=== PATIENT | male | born 1960 | race Two or more races ===

== ENCOUNTER 2017-12-20 09:14 | Emergency (ER) | payer SELFPAY ==
[~2017-12-20] VITALS: Ht 170.2 cm; Wt 70.3 kg
[2017-12-20] MEDS ORDERED: IBUPROFEN600 MG ORAL (09:15)
[2017-12-20 09:21] VITALS: BP 114/76
--- NOTE | 2017-12-20 09:28 | Emergency Room Report ---
History of Present Illness General Chief Complaint: Abdominal Pain Source: Patient Present Illness HPI The patient has a couple different complaints. The patient states that he has had a headache and vertigo for the past few days. He states that the vertigo is the worst part. He states that the symptoms are worse whenever he is walking or standing up. He denies trauma or recent illness. He denies neck pain. He denies fever or chills. He denies nausea or vomiting. He states that he's also had abdominal pain. He did see his primary care physician and was told he has an inguinal hernia on the left. He states that the pain and abdomen continues. He denies dysuria or hematuria. He states he has had a lot of diarrhea. He has no other complaints. Allergies: Coded Allergies: No Known Allergies (Unverified , 12/20/17) Patient History Past Medical History: none, see triage record Social History: Denies: smoking, alcohol use, drug use Reviewed Nursing Documentation: PMH: Agreed; PSxH: Agreed Nursing Documentation-PMH Past Medical History: No Stated History Review of Systems All Other Systems: negative except mentioned in HPI Physical Exam Vital Signs Date Time Temp Pulse Resp B/P (MAP) Pulse Ox O2 Delivery O2 Flow Rate FiO2 12/20/17 09:10 98.6 88 18 124/88 100 Room Air 98.6 Sp02 EP Interpretation: reviewed, normal General Appearance: no apparent distress, alert, GCS 15, non-toxic Head: normocephalic, atraumatic Eyes: bilateral eye normal inspection, bilateral eye PERRL ENT: hearing grossly normal, normal pharynx, no angioedema, normal voice Neck: full range of motion, supple/symm/no masses Respiratory: chest non-tender, lungs clear, normal breath sounds, speaking full sentences Cardiovascular #1: regular rate, rhythm, no edema Gastrointestinal: normal bowel sounds, soft, non-distended, no guarding, no rebound, tenderness - TTP in the LLQ Rectal: deferred Musculoskeletal: back normal, gait/station normal, normal range of motion, non- tender Neurologic: alert, oriented x3, responsive, motor strength/tone normal, sensory intact, speech normal Psychiatric: judgement/insight normal, memory normal, mood/affect normal, no suicidal/homicidal ideation Skin: normal color, no rash, warm/dry, well hydrated Medical Decision Making Diagnostic Impression: Primary Impression: Vertigo Additional Impression: Colitis ER Course This patient had 2 separate complaints. He had complaints of vertigo-like symptoms. This patient has a physical exam at presentation consistent with benign positional vertigo. Other considerations include labyrinthitis, Mnire's disease, central vertigo. The patient's symptoms are short and episodic and have been positional. There are no central neurologic findings on physical exam which is very reassuring that this is not a posterior circulation stroke. CT of the head is negative. I will treat the patient with meclizine and have the patient follow up closely with the primary care physician. The patient also has findings on CT of the abdomen and pelvis consistent with colitis. The patient is tender in the left lower quadrant of the abdomen and has had diarrhea. A history and physical exam in addition to the radiology findings are consistent with a colitis. I will go ahead and treat this patient with a course of Cipro and Flagyl given that the patient has been living on [address]. He is higher risk for a bacterial colitis. That said, this could be viral in etiology. Overall, the patient is well-appearing and nontoxic. The patient was given return precautions and followup instructions. Laboratory Tests Test 12/20/17 09:20 12/20/17 10:20 White Blood Count 7.3 K/UL (4.8-10.8) Red Blood Count 5.23 M/UL (4.70-6.10) Hemoglobin 14.3 G/DL (14.2-18.0) Hematocrit 43.9 % (42.0-52.0) Mean Corpuscular Volume 84 FL (80-99) Mean Corpuscular Hemoglobin 27.3 PG (27.0-31.0) Mean Corpuscular Hemoglobin Concent 32.5 G/DL (32.0-36.0) Red Cell Distribution Width 12.1 % (11.6-14.8) Platelet Count 248 K/UL (150-450) Mean Platelet Volume 5.9 FL (6.5-10.1) L Neutrophils (%) (Auto) 57.1 % (45.0-75.0) Lymphocytes (%) (Auto) 24.8 % (20.0-45.0) Monocytes (%) (Auto) 14.9 % (1.0-10.0) H Eosinophils (%) (Auto) 1.7 % (0.0-3.0) Basophils (%) (Auto) 1.5 % (0.0-2.0) Sodium Level 136 MMOL/L (136-145) Potassium Level 3.6 MMOL/L (3.5-5.1) Chloride Level 103 MMOL/L (98-107) Carbon Dioxide Level 27 MMOL/L (21-32) Anion Gap 6 mmol/L (5-15) Blood Urea Nitrogen 8 mg/dL (7-18) Creatinine 1.0 MG/DL (0.55-1.30) Estimate Glomerular Filtration Rate > 60 mL/min (>60) Glucose Level 111 MG/DL (74-106) H Calcium Level 8.1 MG/DL (8.5-10.1) L Total Bilirubin 0.6 MG/DL (0.2-1.0) Aspartate Amino Transferase (AST) 22 U/L (15-37) Alanine Aminotransferase (ALT) 22 U/L (12-78) Alkaline Phosphatase 96 U/L (46-116) Total Protein 7.1 G/DL (6.4-8.2) Albumin 3.0 G/DL (3.4-5.0) L Globulin 4.1 g/dL Albumin/Globulin Ratio 0.7 (1.0-2.7) L Lipase 72 U/L (73-393) L Urine Color Yellow Urine Appearance Slightly cloudy Urine pH 6 (4.5-8.0) Urine Specific [place] 1.020 (1.005-1.035) Urine Protein 1+ (NEGATIVE) H Urine Glucose (UA) Negative (NEGATIVE) Urine Ketones Negative (NEGATIVE) Urine Occult Blood 4+ (NEGATIVE) H Urine Nitrite Negative (NEGATIVE) Urine Bilirubin Negative (NEGATIVE) Urine Urobilinogen 1 MG/DL (0.0-1.0) H Urine Leukocyte Esterase 1+ (NEGATIVE) H Urine RBC 5-10 /HPF (0 - 0) H Urine WBC 2-4 /HPF (0 - 0) Urine Squamous Epithelial Cells Few /LPF (NONE/OCC) Urine Bacteria Few /HPF (NONE) Urine Mucus Moderate /LPF (NONE/OCC) H CT/MRI/US Diagnostic Results CT/MRI/US Diagnostic Results : Imaging Test Ordered: CT abd/pelvis, CT head Impression CT abd/pelvis: Findings consistent with sigmoid colitis. See official report. CT head: No acute findings. See official report. Last Vital Signs Date Time Temp Pulse Resp B/P (MAP) Pulse Ox O2 Delivery O2 Flow Rate FiO2 12/20/17 09:21 98.6 94 18 114/76 98 Room Air 98.6 Disposition: HOME, SELF-CARE Condition: Improved KAZ LOCKE D.O. Dec 20, 2017 09:28
[2017-12-20] MEDS ORDERED: Meclizine 25mg tab ORAL ONE (09:30)
[2017-12-20] MEDS ORDERED: Isovue-300 100ml vial INJ PRN (09:30)
[2017-12-20 09:41] LABS: BASOPHILS % (AUTO) 1.5 % (0.0-2.0); EOSINOPHILS % (AUTO) 1.7 % (0.0-3.0); HEMATOCRIT 43.9 % (42.0-52.0); HEMOGLOBIN 14.3 G/DL (14.2-18.0); LYMPHOCYTES % (AUTO) 24.8 % (20.0-45.0); MEAN CORPUSCULAR VOLUME 84 FL (80-99); MONOCYTES % (AUTO) 14.9 % (1.0-10.0); NEUTROPHILS % (AUTO) 57.1 % (45.0-75.0); PLATELET COUNT 248 K/UL (150-450); RED BLOOD COUNT 5.23 M/UL (4.70-6.10); RED CELL DISTRIBUTION WIDTH 12.1 % (11.6-14.8); WHITE BLOOD COUNT 7.3 K/UL (4.8-10.8)
[2017-12-20 09:45] LABS: ANION GAP 6 mmol/L (5-15); BLOOD UREA NITROGEN 8 mg/dL (7-18); CALCIUM 8.1 MG/DL (8.5-10.1); CARBON DIOXIDE 27 MMOL/L (21-32); CHLORIDE 103 MMOL/L (98-107); POTASSIUM 3.6 MMOL/L (3.5-5.1); SODIUM 136 MMOL/L (136-145)
[2017-12-20 09:49] LABS: ALANINE AMINOTRANSFERASE 22 U/L (12-78); ALBUMIN/GLOBULIN RATIO 0.7 (1.0-2.7); ALKALINE PHOSPHATASE 96 U/L (46-116); ASPARTATE AMINO TRANSFERASE 22 U/L (15-37); BILIRUBIN,TOTAL 0.6 MG/DL (0.2-1.0)
[2017-12-20 10:33] LABS: APPEARANCE,URINE SLIGHTLY CLOUDY; BILIRUBIN, URINE NEGATIVE (NEGATIVE); GLUCOSE, URINE (UA) NEGATIVE (NEGATIVE); KETONES,URINE NEGATIVE (NEGATIVE); LEUKOCYTE ESTERASE ,URINE 1+ (NEGATIVE); NITRITE,URINE NEGATIVE (NEGATIVE); PH,URINE 6 (4.5-8.0); PROTEIN,URINE 1+ (NEGATIVE); UROBILINOGEN,URINE 1 MG/DL (0.0-1.0)
--- NOTE | 2017-12-20 10:39 | Diagnostic Imaging Report ---
Indications: Headache and dizziness Technique: Spiral acquisitions obtained through the brain. Angled axial and coronal 5 x 5 mm slices were reconstructed. Total dose length product 1418.28 mGycm. CTDI vol(s) 70.38 mGy. Dose reduction achieved using automated exposure control Comparison: None. Findings: No acute intracranial hemorrhage or edema. And intervals and extra-axial CSF spaces are slightly prominent. There is minimal periventricular deep white matter chronic ischemic change. There is a small focus of encephalomalacia in the left parasagittal frontal deep white matter extending to the cortex. No acute intracranial hemorrhage or edema, mass effect, or midline shift. Normal marmolejo-white differentiation. Intact calvarium. Orbits and sinuses are unremarkable. The mastoids are clear. 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
[2017-12-20 10:48] LABS: COLOR,URINE YELLOW
[2017-12-20 10:55] VITALS: BP 117/87
--- NOTE | 2017-12-20 11:15 | Diagnostic Imaging Report ---
Clinical Indication: Abdominal pain Technique: No oral contrast utilized, per emergency room physician request IV administration nonionic contrast. Venous phase spiral acquisition obtained through the abdomen and pelvis. Multiplanar reconstructions were generated. Total dose length product 711.82 mGycm. CTDIvol(s) 12.37 mGy. Dose reduction achieved using automated exposure control Comparison: none Findings: Examination of the GI tract is limited in the absence of oral contrast administration There is wall thickening of most of the descending colon and of the proximal sigmoid. There is also pericolonic fat infiltration. There is fairly extensive distal colonic diverticulosis. No extraluminal gas or fluid collections demonstrated. The appendix is normal. No small bowel distention no free or loculated intraperitoneal air or fluid is evident. Distal esophagus, stomach, duodenum are unremarkable. There is a small left inguinal hernia which contains only fat, no bowel. The liver, gallbladder, bile ducts, pancreas, spleen, adrenals are all unremarkable. The kidneys demonstrate bilateral cysts as well as bilateral subcentimeter lesions which are too small to characterize. Small calyceal calculi are seen in the lower pole of the left kidney, measuring up to 6 mm in diameter. A 4 mm calyceal calculus is seen in the right kidney. No hydronephrosis or ureteral calculi are demonstrated. There is a circumaortic left renal vein. The bladder wall is equivocally thickened although this is probably an artifact of under distention. No pelvic mass or adenopathy. No retroperitoneal or mesenteric mass or adenopathy. The included lung bases demonstrate posterior and basilar atelectatic changes. The bones demonstrate minimal degenerative spondylosis changes. There is a large subcutaneous cystic lesion in the right buttock which is incompletely included in the available imaging volume but measures 7 cm transverse by at least 5.5 cm craniocaudad by 2.5 cm in thickness. Impression: Thickening of the descending colon and proximal sigmoid colon with pericolonic fat stranding, consistent with colitis, otherwise nonspecific as regards etiology. It is also possible that findings represent acute diverticulitis, given the presence of abundant diverticula, but the long segment of the involvement makes this less likely. No evidence of abscess or perforation. Normal appendix Bilateral nonobstructive intrarenal calyceal calculi Equivocal bladder wall thickening, most likely artifact of under distention, cystitis not completely excludable Unusual large subcutaneous cystic lesion in the right buttock. Presumably a cutaneous lesion such as a sebaceous or other cyst. Correlate with clinical findings Bilateral renal cysts. Bilateral subcentimeter low-attenuation renal lesions, too small to characterize, most likely benign simple cysts Other incidental findings as noted, including basilar pulmonary parenchymal atelectatic changes, minimal degenerative spondylosis, circumaortic left renal vein, small fat-containing left inguinal hernia The CT scanner at [facility] is accredited by the [employer] and the scans are performed using protocols designed to limit radiation exposure to as low as reasonably achievable to attain images of sufficient resolution adequate for diagnostic evaluation.
[2017-12-20] MEDS ORDERED: MECLIZINE HCL25 MG ORAL (11:28)
[2017-12-20] MEDS ORDERED: METRONIDAZOLE500 MG ORAL (11:28)
[2017-12-20] MEDS ORDERED: CIPROFLOXACIN500 M2 ORAL (11:28)
[2017-12-20 11:55] VITALS: BP 118/77
== END 2017-12-20 11:55 | disposition home or self-care (01) ==
LOC: EDBD 09:14 → EMR 10:04
DX: R42 Dizziness and giddiness (principal); K52.9 Noninfective gastroenteritis and colitis, unspecified; R51 Headache
CPT/HCPCS: 36415; 70450; 74177; 80053; 81003; 83690; 85025; 96360; 99284; Q9967; 96374